=== PATIENT | male | born 1955 | race Caucasian/White ===

== ENCOUNTER 2023-03-10 06:34 | Emergency (ER) | payer MEDICARE ==
[~2023-03-10] VITALS: Ht 180.3 cm; Wt 77.1 kg
[2023-03-10 09:47] VITALS: BP 113/71; TEMP 98.2; O2SAT 98
[2023-03-10 09:50] LABS: APPEARANCE,URINE SLIGHTLY CLOUDY (CLEAR); BILIRUBIN,URINE NEGATIVE (NEGATIVE); BLOOD, URINE NEGATIVE Ery/uL (NEGATIVE); COLOR,URINE YELLOW (YELLOW); KETONES,URINE 1+ mg/dL (NEGATIVE); LEUKOCYTE ESTERASE ,URINE NEGATIVE (NEGATIVE); NITRITE, URINE NEGATIVE (NEGATIVE); PH,URINE 7.5 (5.0-8.0); PROTEIN,URINE NEGATIVE (NEGATIVE); UGLUCOSE NEGATIVE (NEGATIVE)
[2023-03-10 09:59] LABS: AMPHETAMINE, URINE NEGATIVE (NEGATIVE); BARBITURATE, URINE NEGATIVE (NEGATIVE); BENZODIAZEPINE, URINE NEGATIVE (NEGATIVE); CANNABINOID, URINE NEGATIVE (NEGATIVE); PHENCYCLIDINE SCREEN,URINE NEGATIVE (NEGATIVE)
[2023-03-10 10:07] LABS: COCCAINE, URINE POSITIVE (NEGATIVE); OPIATE, URINE POSITIVE (NEGATIVE)
[2023-03-10 10:23] LABS: ADD URINE CULTURE NO; BACTERIA,URINE Few /HPF (None Seen); RBC,URINE NONE SEEN /HPF (0-2); SQUAMOUS EPITHELIAL CELL,UR None Seen /HPF (None Seen); WBC,URINE NONE SEEN /HPF (0-3)
== END 2023-03-10 09:48 | disposition home or self-care (01) ==
LOC: ER 06:36
DX: G89.29 Other chronic pain (principal); M54.50 Low back pain, unspecified; F32.A Depression, unspecified; F41.9 Anxiety disorder, unspecified; Z59.00 Homelessness unspecified; Z20.822 Contact with and (suspected) exposure to COVID-19
CPT/HCPCS: 71045-TC; 81001; C9803